=== PATIENT | female | born 1985 | race Caucasian/White ===

== ENCOUNTER 2017-01-03 16:17 | Emergency (ER) | payer OTHER ==
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
[~2017-01-03 16:17] MED LIST: AMOXICILLIN PO; AUGMENTIN PO; CIPRO PO; EC-NAPROSYN500 MG PO; FLEXERIL PO; FLEXERIL10 MG PO; IBUPROFEN PO; LORTAB 7.5-5001 TAB PO; LORTAB 7.51 TAB 7.5/ PO; MEDROL PO; NAPROSYN500 MG PO; NO MEDICATIONS; NORCO 5/325 TAB1 TAB PO; ORAL GEL15 GM TOP; PHENERGAN PR; PREDNISONE PO; PYRIDIUM PO; ROBAXIN PO; ULTRAM PO; VICODIN 5/1 TAB 5/50 PO; VICODIN PO
== END 2017-01-03 17:59 | disposition home or self-care (01) ==
LOC: SED 16:17
DX: S90.02XA Contusion of left ankle, initial encounter (principal); S50.02XA Contusion of left elbow, initial encounter; S60.222A Contusion of left hand, initial encounter; S50.812A Abrasion of left forearm, initial encounter; M54.2 Cervicalgia; F17.210 Nicotine dependence, cigarettes, uncomplicated; V47.5XXA Car driver injured in collision with fixed or stationary object in traffic accident, initial encounter
CPT/HCPCS: 29540; 73080; 73090; 73110; 73130; 73610; 73630; 90471; 90715; 99283